=== PATIENT | male | born 1965 | race Caucasian/White ===

== ENCOUNTER 2017-05-24 05:13 | Inpatient (IN) | payer BC, OTHER ==
[~2017-05-24] VITALS: Ht 188 cm; Wt 86.2 kg
[2017-05-24] VITALS (8 sets, daily range): BP systolic 104–140; BP diastolic 31–89
--- NOTE | ~2017-05-24 | S ---
[facility] [place] [address] SURGICAL PATH RPT PROCEDURE Name: FRANKIE US Room #: 407-P ADM IN M.R.#: [id number] Admission: 05/24/17 Date of : 63 Discharge: Report #: [id number] Path Case #: [id number] PATHOLOGY REPORT COLLECTION DATE: 05/24/2017 RECEIVED DATE: 05/24/2017 SUBMITTING PHYS: Dr. Bartolome Madera OTHER PHYS: Dr. Luís Khan SPECIMEN(S) RECEIVED: A.Right great toe * * * * * * * * * * * * FINAL DIAGNOSIS: Great toe, right, amputation: - Skin with ulcer. - Features consistent with chronic osteomyelitis. - Bone and cartilage with remodeling and degenerative change. - Foreign body giant cell reaction. COMMENT: The patient's history of steroid injections is noted. This case is co-reviewed by Dr. Madeleine Butcher. PATHOLOGIST: Tre Feng M.D. REPORT ELECTRONICALLY SIGNED BY: Tre Feng M.D. DATE/TIME: 05/26/2017 10:57 * * * * * * * * * * * * GROSS PATHOLOGY: The specimen is received in formalin labeled "Frankie Us, right great toe". Received is an amputated digit measuring 5.0 x 4.1 x 3.1 cm in greatest dimensions. The bone margin is blunting in appearance, consistent with transection. The bone and soft tissue margins are inked black. The nail is pale valentin, flaky and thickened in appearance. On the medial aspect of the specimen, there is a well-circumscribed, irregular in contour pink-valentin lesion measuring 0.8 x 0.5 cm, which is 0.9 cm from the closest margin. A full-thickness longitudinal cross-sections is submitted from proximal to distal aspects in cassettes A1 through A3, following decalcification. A customer development representative section of the lesion with adjacent skin margin is submitted in cassette A4. (CAA; 05/24/2017) CLINICAL HISTORY: [address] [address] SURGICAL PATH RPT PROCEDURE Name: FRANKIE US Room #: 407-P ADM IN M.R.#: [id number] Admission: 05/24/17 Date of : 63 Discharge: Report #: [id number] Path Case #: [id number] Right great toe osteomyelitis INITIAL CPT CODE(S): A; 73023, 77312 Professional services performed by [facility] at [address] , [place] [address] Technical services performed by [facility] at [address] [place] [address], [facility] [address] [address]. [facility] [address] [place] [address] PHONE: [phone] DIRECTOR: Rupesh Godinez M.D. * * * END OF REPORT * * *
--- NOTE | ~2017-05-24 | EKG ---
[address] [address] ELECTROCARDIOGRAM REPORT Name: FRANKIE US Room #: 150- ADM IN M.R.#: [id number] Admission: 05/24/17 Attend Phys: Bartolome Madera MD Discharge: Date of : 63 Report #: [id number] THIS REPORT FOR: //name// [facility] Test Date: 2017-05-24 Test Time: 06:26:34 Pat Name: FRANKIE US Department: Room: 150 12 Gender: M Costume Director: EVELIN : 1965 Requested By: Bartolome Madera Order Number: [id number] MD: Dayo Mueller Measurements Intervals [place] Rate: 78 P: 63 CO: 137 QRS: 3 QRSD: 118 T: 56 QT: 404 QTc: 461 Interpretive Statements Sinus rhythm Incomplete right bundle branch block No previous ECG available for comparison Electronically Signed On 05-24-2017 8:52:39 CDT by Dayo Mueller [email or web address] <ELECTRONICALLY SIGNED> By: Dayo Mueller MD, [facility] 05/24/17 0852 0626 5 Dayo Mueller MD, FACC /EPI
--- NOTE | ~2017-05-24 | O ---
[facility] [place] [address] OPERATIVE REPORT Name: FRANKIE US Room #: 150-12 ADM IN M.R.#: [id number] Admission: 05/24/17 Attend Phys: Bartolome Madera MD Discharge: Date of : 63 Report #: [id number] THIS REPORT FOR: //name// CC: Luís Madera DATE OF SERVICE: 05/24/2017 DATE OF SERVICE: 05/24/2017 PREOPERATIVE DIAGNOSIS: Right great toe osteomyelitis. POSTOPERATIVE DIAGNOSIS: Right great toe osteomyelitis. PROCEDURE: Right great toe amputation. SURGEON: Bartolome Madera MD SHEEPSKIN PICKLER: CHHAYA York ANESTHESIA: General. ESTIMATED BLOOD LOSS: Minimal. DRAINS: One [place] drain was left in the wound. TOURNIQUET TIME: 15 minutes. DESCRIPTION OF PROCEDURE: The patient brought to the operating room where he was placed under general anesthesia. Once under adequate general anesthesia, his right lower extremity was prepped and draped in sterile manner. The extremity was elevated and tourniquet placed to 250 mmHg. A fishmouth-type incision was then made about the interphalangeal joint of the great toe. Exposure was then made of the proximal phalanx sharply with a 15 blade and a sagittal saw was then used to transect the proximal phalanx. The distal toe was then removed. The wound was irrigated copiously and closed with 3-0 nylon over a 5/8 inch [place] drain. Once complete, the wound was dressed with Xeroform, 4 x 4s, and a sterile soft compressive dressing. Tourniquet was let down in approximately 15 minutes. There were no complications from the procedure. The patient tolerated the procedure well and went to the recovery room without incident. By: 0813 0834 Bartolome Madera MD /nt
--- NOTE | ~2017-05-24 | HC ---
[facility] [place] [address] CONSULTATION Name: FRANKIE SU Room #: 407-P ADM IN M.R.#: [id number] Admission: 05/24/17 Attend Phys: Bartolome Madera MD Discharge: Date of : 63 Report #: [id number] THIS REPORT FOR: //name// CC: Luís Madera DATE OF SERVICE: 05/24/2017 Infectious Disease Consultation REASON FOR CONSULTATION: I was asked to evaluate concerning right first toe osteomyelitis. HISTORY OF PRESENT ILLNESS: The patient is a 51-year-old with underlying history of coronary artery disease who in September developed a blister to the medial aspect of his right first toe. Despite wound care and antibiotic therapy, he failed to improve. Was found to have underlying osteomyelitis and underwent toe amputation today. No fever, chills or sweats. No history of diabetes or peripheral vascular disease on record. He does smoke cigarettes. He has had no other lower extremity wounds. He does work as a electronics system mechanic. No other reported trauma to the foot. ALLERGIES: MULTIPLE INCLUDING PENICILLIN, AUGMENTIN, KEFLEX, SULFA, ERYTHROMYCIN, GATIFLOXACIN, ALTHOUGH HE DOES TOLERATE CIPROFLOXACIN. MEDICATIONS: As noted on his MAR, including aspirin, atorvastatin, Zebeta, clindamycin. PAST MEDICAL HISTORY: Coronary artery disease stenting procedure, hypertension, hyperlipidemia. FAMILY HISTORY: Noncontributory. SOCIAL HISTORY: As noted above with no additions. REVIEW OF SYSTEMS: No cardiopulmonary, GI or complaints. PHYSICAL EXAMINATION: VITAL SIGNS: Afebrile and hemodynamically stable. GENERAL: The patient was alert and cooperative, in no acute distress. HEENT: Unremarkable. NECK: Supple. LUNGS: Clear. HEART: Regular, without murmur. ABDOMEN: Soft and nontender. [facility] [address] [place] [address] CONSULTATION Name: FRANKIE US Room #: 407-P [facility] IN .R.#: [id number] Admission: 05/24/17 Attend Phys: Bartolome Madera MD Discharge: Date of : 63 Report #: [id number] EXTREMITIES: Pulses in the groin on the right were normal. Good pulse in the popliteal and palpable pulse in the right posterior tibial. Due to his postoperative dressings, I was unable to palpate the dorsalis pedis. He had good sensation to touch. <ELECTRONICALLY SIGNED> By: Hung Ortiz MD 05/25/17 1709 [id number] [id number] Hung Ortiz MD /nt
[~2017-05-24 05:13] MED LIST: ASPIR 8181 MG PO; ATORVASTATIN CA40 MG PO; BISOPROLOL FUMAR5 MG PO; FLEXERIL PO; HYDROCODONE-AP1 EAC6 PO; SINGULAIR 10 MG10 M1 PO
[2017-05-24 14:29] LABS: HEMATOCRIT 40.1 % (42.0-52.0); MCH 30.9 pg (26.0-34.0); MCHC 32.5 g/dL (28.0-37.0); MCV 95.2 fL (80.0-100.0); RBC 4.22 mil/uL (4.50-6.00); RDW 15.7 % (10.5-14.5)
[2017-05-24 14:41] LABS: ALBUMIN 3.6 g/dL (3.4-5.0); CALCIUM 8.9 mg/dL (8.5-10.1); CREATININE 1.1 mg/dL (0.7-1.3); POTASSIUM 4.1 mmol/L (3.5-5.1); TOTAL BILIRUBIN 0.4 mg/dL (<0.1-1.0)
[2017-05-24 22:08] LABS: GLYCOHEMOGLOBIN (HGB A1C) 5.8 % (4.8-5.6)
[2017-05-25 04:24] VITALS: BP 123/78
[2017-05-25 06:31] LABS: HEMATOCRIT 38.5 % (42.0-52.0)
[2017-05-25 06:50] LABS: POTASSIUM 4.1 mmol/L (3.5-5.1)
[2017-05-25 07:49] VITALS: BP 112/69
[2017-05-25 16:24] VITALS: BP 103/63
[2017-05-26] VITALS: BP 123/68
[2017-05-26 04:00] VITALS: BP 115/65
[2017-05-26 08:25] VITALS: BP 109/68
[2017-05-26] MEDS ORDERED: DOXYCYCLINE 10100 MG PO (15:05)
[2017-05-26 15:13] VITALS: BP 109/68
== END 2017-05-26 15:43 | disposition home or self-care (01) | DRG 505 ==
LOC: EDBD → PRE 05:13 → TBA 05:40 → 4N 09:19 → PRE 15:45 → ENTRNSPT 05-26 15:36 → EDTRNSPTSTS 05-26 15:38 → 4N 05-26 15:43
PROVIDERS: Orthopaedic Surgery Foot and Ankle Surgery; Specialist
PROC: 0Y6P0Z1 Detachment at Right 1st Toe, High, Open Approach (ICD-10-PCS; principal; 2017-05-24)
DX: M86.8X8 Other osteomyelitis, other site (principal); I25.10 Atherosclerotic heart disease of native coronary artery without angina pectoris; I10 Essential (primary) hypertension; E78.5 Hyperlipidemia, unspecified; E78.00 Pure hypercholesterolemia, unspecified; F17.210 Nicotine dependence, cigarettes, uncomplicated; I73.9 Peripheral vascular disease, unspecified; Z88.0 Allergy status to penicillin; Z88.2 Allergy status to sulfonamides; Z88.1 Allergy status to other antibiotic agents
CPT/HCPCS: 10790; 50010; 50101; 50386; 50951; 56527; 57091; 62110; 62900; 70005